=== PATIENT | female | born 1945 | race Caucasian/White ===

== ENCOUNTER → 2017-04-08 | Outpatient (CLI) | payer MEDICARE, BC | LOC: BICMAMMO 12:00 | PROVIDERS: ATTEND Internal Medicine | DX: Z12.31 Encounter for screening mammogram for malignant neoplasm of breast (principal) | CPT/HCPCS: 77063; 77067 ==

== ENCOUNTER 2018-07-20 12:12 | Outpatient (CLI) | payer MEDICARE, BC ==
--- NOTE | 2018-07-20 12:57 | MMO ---
Bilateral MAMMO Bilat Screen [facility]. CLINICAL HISTORY: Patient is 73 years old and is seen for screening. The patient has no family history of breast cancer. The patient has no personal history of cancer. The patient has a history of right Excisional Biopsy in March 2004 - benign. VIEWS: The views performed were: bilateral craniocaudal with tomosynthesis and bilateral mediolateral oblique with tomosynthesis. FILMS COMPARED: The present examination has been compared to prior imaging studies performed at [facility] on 02/13/2005, 02/16/2006, 02/24/2006, 02/24/2007, 02/28/2008, 03/01/2009, 03/19/2010, 03/20/2011, 04/04/2015, 04/07/2016 and 04/08/2017, and at [facility] on 02/10/2003 and 02/14/2004. MAMMOGRAM FINDINGS: There are scattered fibroglandular densities. There are no suspicious masses, suspicious calcifications, or new areas of architectural distortion. IMPRESSION: THERE IS NO MAMMOGRAPHIC EVIDENCE OF MALIGNANCY. A ROUTINE FOLLOW-UP MAMMOGRAM IN 1 YEAR IS RECOMMENDED. THE RESULTS OF THIS EXAM WERE SENT TO THE PATIENT. ACR BI-RADS Category 1 - Negative MAMMOGRAPHY NOTE: 1. A negative mammogram report should not delay a biopsy if a dominant of clinically suspicious mass is present. 2. Approximately 10% to 15% of breast cancers are not detected by mammography. 3. Adenosis and dense breasts may obscure an underlying neoplasm.
== END 2018-07-20 12:13 | disposition home or self-care (01) ==
LOC: BICMAMMO 12:12
PROVIDERS: ATTEND Obstetrics & Gynecology
DX: Z12.31 Encounter for screening mammogram for malignant neoplasm of breast (principal)
CPT/HCPCS: 77063; 77067

== ENCOUNTER 2019-07-25 10:52 | Outpatient (CLI) | payer MEDICARE, BC ==
--- NOTE | 2019-07-25 11:32 | MMO ---
Bilateral MAMMO Bilat Screen [facility]. CLINICAL HISTORY: Patient is 74 years old and is seen for screening. The patient has no family history of breast cancer. The patient has a history of Skin cancer. The patient has a history of right Excisional Biopsy in March 2004 - benign. VIEWS: The views performed were: bilateral craniocaudal with tomosynthesis; bilateral mediolateral oblique with tomosynthesis; and left mediolateral oblique. FILMS COMPARED: The present examination has been compared to prior imaging studies performed at [facility] on 04/04/2015, 04/07/2016, 04/08/2017 and 07/20/2018. This study has been interpreted with the assistance of computer-aided detection. MAMMOGRAM FINDINGS: There are scattered fibroglandular densities. There are no suspicious masses, suspicious calcifications, or new areas of architectural distortion. IMPRESSION: THERE IS NO MAMMOGRAPHIC EVIDENCE OF MALIGNANCY. A ROUTINE FOLLOW-UP MAMMOGRAM IN 1 YEAR IS RECOMMENDED. THE RESULTS OF THIS EXAM WERE SENT TO THE PATIENT. ACR BI-RADS Category 1 - Negative MAMMOGRAPHY NOTE: 1. A negative mammogram report should not delay a biopsy if a dominant of clinically suspicious mass is present. 2. Approximately 10% to 15% of breast cancers are not detected by mammography. 3. Adenosis and dense breasts may obscure an underlying neoplasm. Reported by: DANTE MARIN MD Electonically Signed: [id number]
== END 2019-07-25 10:53 | disposition home or self-care (01) ==
LOC: BICMAMMO 10:52
PROVIDERS: ATTEND Obstetrics & Gynecology
DX: Z12.31 Encounter for screening mammogram for malignant neoplasm of breast (principal); Z85.828 Personal history of other malignant neoplasm of skin; Z91.89 Other specified personal risk factors, not elsewhere classified
CPT/HCPCS: 77063; 77067

== ENCOUNTER 2020-02-03 15:48 | Outpatient (CLI) | payer MEDICARE, BC ==
--- NOTE | 2020-02-03 16:43 | CT ---
CT lumbar spine noncontrast HISTORY: Low back pain. Radiculopathy. FINDINGS: Vertebral body heights are maintained. No acute fracture or dislocation. Small dystrophic calcification at the left posterior costophrenic angle may represent a granuloma fro m healed granulomatous disease. Metallic clips are noted at the gallbladder fossa. T12-L1, L1-2, L2-3: Mild osteophytosis. Central canal and neural foramina are patent. L3-4: Disc space narrowing and very mild disc bulge. Osteophytosis of the facets. Central canal and l eft neural foramen are patent. Mild stenosis of the right neural foramen. L4-5: Mild disc space narrowing. There is 0.3 cm anterior translation of L4 on L5. No fractures. Mild diffuse posterior disc bulge, along with posterior ligaments thickening and facet hypertrophy result in moderate to severe stenosis of the central canal. Neural foramina remain patent. L5-S1: Disc space narrowing. Gas disc phenomenon. Mild osteophytosis of the facets. Central canal and neural foramina are patent. IMPRESSION : Degenerative changes most pronounced at the L4-5 level, where there is moderate to severe stenosis of the central canal, resulting from grade 1 spondylolisthesis and circumferential degenerative changes.
== END 2020-02-03 15:49 | disposition home or self-care (01) ==
LOC: BICCT 15:48
PROVIDERS: ATTEND Anesthesiology Pain Medicine
DX: M54.42 Lumbago with sciatica, left side (principal); M47.816 Spondylosis without myelopathy or radiculopathy, lumbar region; M43.16 Spondylolisthesis, lumbar region; M48.061 Spinal stenosis, lumbar region without neurogenic claudication
CPT/HCPCS: 72131

== ENCOUNTER 2020-02-14 15:28 | Outpatient (CLI) | payer MEDICARE, BC ==
--- NOTE | 2020-02-14 16:40 | CT ---
CT Thoracic Spine WO Con History: Neck and back pain Comparison: CT chest October 23, 2019 Findings: Mild peripheral scarring throughout the lungs greatest in the upper lobes. No pneumothorax. No pleural effusion. No significant pericardial fluid. The visualized thoracic aorta is normal in size. Sternum and manubrium are not fully in the [id number]. No thoracic spine compression fracture. No retropulsion. No significant listhesis. Bridging anterior osteophytes involving the mid and lower thoracic spine. Visualized posterior ribs are intact. Small calcified granuloma just posterior to the spleen measurin g less than 4 mm. No facet joint widening. No spinous process fracture. No transverse process fracture. [employer] is enlarged measuring up to 3.5 cm. Right T2/T3 paramidline and lateral recess disc osteophyte complex causes mild right neural foraminal narrowing. No significant spinal canal narrowing. Left lateral recess and subforaminal disc osteophyte complex at T10/T11 causes moderate neural forami nal narrowing. No other level of neural foraminal or spinal canal narrowing is appreciated. Multiple flowing anterior osteophytes at the mid and lower thoracic spine with relatively maintained disc space height loss. Impression: No high-grade neural foraminal or spinal canal narrowing. Small right T2/T3 and left T10/ T11 disc osteophyte complex.
--- NOTE | 2020-02-14 17:15 | CT ---
CT CERVICAL SPINE WITHOUT CONTRAST: 02/14/20 INDICATIONS: Neck pain. right arm tingling. FINDINGS: Cervical vertebrae maintain height and alignment. Degenerative changes are noted at the C5-6 and C6-7 levels. Loss of disc space at both of these levels with anterior osteophytes and posterior spondylos is. C2-3: Mild bulge. No central canal or foraminal stenosis. C3-4: Mild diffuse disc bulge effaces the anterior subarachnoid space. Possible small central protrus ion abutting the anterior cord. No foraminal stenosis. C4-5: Mild disc bulge and spondylosis efface the anterior subarachnoid space. Left uncinate hypertro phy produces mild left foraminal encroachment without significant stenosis. No significant central ca nal stenosis. C5-6: Prominent posterior spondylosis produces cord compression and moderate central canal stenosis. Bilateral foraminal stenosis due to facet and uncinate hypertrophy. C6-7: Disc bulge and spondylosis abuts the anterior cord. No significant foraminal stenosis. IMPRESSION: 1. Degenerative changes at C5-6 with posterior spondylosis produces cord compression and bilater al foraminal stenosis. 2. Findings at other levels as described above. POS: [facility]W
== END 2020-02-14 15:29 | disposition home or self-care (01) ==
LOC: BICCT 15:28
PROVIDERS: ATTEND Anesthesiology Pain Medicine
DX: M51.34 Other intervertebral disc degeneration, thoracic region (principal); M50.122 Cervical disc disorder at C5-C6 level with radiculopathy; M48.02 Spinal stenosis, cervical region; M47.812 Spondylosis without myelopathy or radiculopathy, cervical region
CPT/HCPCS: 72125; 72128

== ENCOUNTER 2020-07-26 09:14 | Outpatient (CLI) | payer MEDICARE, BC | END 2020-07-26 09:15 | disposition home or self-care (01) | LOC: BICMAMMO 09:14 | PROVIDERS: ATTEND Obstetrics & Gynecology | DX: Z12.31 Encounter for screening mammogram for malignant neoplasm of breast (principal); Z85.828 Personal history of other malignant neoplasm of skin; Z91.89 Other specified personal risk factors, not elsewhere classified | CPT/HCPCS: 77063; 77067 ==

== ENCOUNTER 2021-01-09 07:36 | Day surgery (SDC) | payer MEDICARE, BC ==
[2021-01-08 09:56] VITALS: BMI 36.9
[2021-01-09 08:07] VITALS: BP 129/84; TEMP 98.3
== END 2021-01-09 10:05 | disposition home or self-care (01) ==
LOC: RAD 07:36 → EDSTATUS 08:00 → RAD 10:05
PROVIDERS: ATTEND Neurological Surgery
DX: M47.22 Other spondylosis with radiculopathy, cervical region (principal); M50.122 Cervical disc disorder at C5-C6 level with radiculopathy; M48.02 Spinal stenosis, cervical region; M47.813 Spondylosis without myelopathy or radiculopathy, cervicothoracic region; M47.24 Other spondylosis with radiculopathy, thoracic region; M51.14 Intervertebral disc disorders with radiculopathy, thoracic region; M48.14 Ankylosing hyperostosis [Forestier], thoracic region; M47.26 Other spondylosis with radiculopathy, lumbar region; M43.16 Spondylolisthesis, lumbar region; M48.061 Spinal stenosis, lumbar region without neurogenic claudication; M67.88 Other specified disorders of synovium and tendon, other site; I42.9 Cardiomyopathy, unspecified; M32.9 Systemic lupus erythematosus, unspecified; K21.9 Gastro-esophageal reflux disease without esophagitis; I10 Essential (primary) hypertension; E78.5 Hyperlipidemia, unspecified; Z86.16 Personal history of COVID-19; Z79.82 Long term (current) use of aspirin; Z79.899 Other long term (current) drug therapy; Z95.810 Presence of automatic (implantable) cardiac defibrillator
CPT/HCPCS: 72126; 72129; 72132; 77002

== ENCOUNTER 2021-02-01 10:41 | Outpatient (CLI) | payer MEDICARE, BC | END 2021-02-01 10:42 | disposition home or self-care (01) | LOC: BICRAD 10:41 | PROVIDERS: ATTEND Anesthesiology Pain Medicine | DX: M43.16 Spondylolisthesis, lumbar region (principal); M51.36 Other intervertebral disc degeneration, lumbar region | CPT/HCPCS: 72110 ==

== ENCOUNTER 2021-07-29 10:29 | Outpatient (CLI) | payer MEDICARE, BC | END 2021-07-29 10:30 | disposition home or self-care (01) | LOC: BICMAMMO 10:29 | PROVIDERS: ATTEND Internal Medicine | DX: Z12.31 Encounter for screening mammogram for malignant neoplasm of breast (principal); Z85.828 Personal history of other malignant neoplasm of skin; Z91.89 Other specified personal risk factors, not elsewhere classified | CPT/HCPCS: 77063; 77067 ==

== ENCOUNTER 2021-07-31 15:14 | Outpatient (CLI) | payer MEDICARE, BC | END 2021-07-31 15:15 | disposition home or self-care (01) | LOC: BICRAD 15:14 | PROVIDERS: ATTEND Podiatrist | DX: M79.671 Pain in right foot (principal); G60.9 Hereditary and idiopathic neuropathy, unspecified; M25.871 Other specified joint disorders, right ankle and foot ==

== ENCOUNTER 2022-09-09 12:48 | Outpatient (CLI) | payer MEDICARE, BC | END 2022-09-09 12:49 | disposition home or self-care (01) | LOC: BICMAMMO 12:48 | PROVIDERS: ATTEND Obstetrics & Gynecology | DX: Z12.31 Encounter for screening mammogram for malignant neoplasm of breast (principal); Z13.820 Encounter for screening for osteoporosis; M81.0 Age-related osteoporosis without current pathological fracture; M85.80 Other specified disorders of bone density and structure, unspecified site; Z91.89 Other specified personal risk factors, not elsewhere classified; Z85.828 Personal history of other malignant neoplasm of skin | CPT/HCPCS: 77063; 77067; 77080 ==

== ENCOUNTER 2023-09-11 10:27 | Outpatient (CLI) | payer MEDICARE, BC | END 2023-09-11 10:28 | disposition home or self-care (01) | LOC: BICMAMMO 10:27 | PROVIDERS: ATTEND Obstetrics & Gynecology | DX: Z12.31 Encounter for screening mammogram for malignant neoplasm of breast (principal); Z85.828 Personal history of other malignant neoplasm of skin; Z91.89 Other specified personal risk factors, not elsewhere classified | CPT/HCPCS: 77063; 77067 ==

== ENCOUNTER 2024-01-25 13:51 | Outpatient (CLI) | payer MEDICARE, BC | END 2024-01-25 13:52 | disposition home or self-care (01) | LOC: BICCT 13:51 | PROVIDERS: ATTEND Physician Assistant Medical | DX: R10.84 Generalized abdominal pain (principal); R19.4 Change in bowel habit; R14.0 Abdominal distension (gaseous); K59.00 Constipation, unspecified | CPT/HCPCS: 36415; 74177; 82565 ==

== ENCOUNTER 2024-03-17 06:52 | Day surgery (SDC) | payer MEDICARE, BC ==
[2024-03-16 13:16] VITALS: BMI 38.6
[2024-03-17] MEDS ORDERED: PROPOFOL 40 ML ONE (08:00)
[2024-03-17] MEDS ORDERED: Lidocaine 2% PF 5 ML VIAL ONE (08:00)
[2024-03-17] MEDS ORDERED: PHENYLEPHRINE-NS 100 MCG/ML 10 ML SYRINGE ONE (09:09)
[2024-03-17] MEDS ORDERED: PROPOFOL 20 ML ONE (09:09)
== END 2024-03-17 10:25 | disposition home or self-care (01) ==
LOC: SDC 06:52
PROVIDERS: ATTEND Internal Medicine Gastroenterology
PROC: 0DB68ZX Excision of Stomach, Via Natural or Artificial Opening Endoscopic, Diagnostic (ICD-10-PCS; principal; 2024-03-17)
PROC: 0D758ZZ Dilation of Esophagus, Via Natural or Artificial Opening Endoscopic (ICD-10-PCS; 2024-03-17)
PROC: 0DBN8ZZ Excision of Sigmoid Colon, Via Natural or Artificial Opening Endoscopic (ICD-10-PCS; 2024-03-17)
DX: K63.5 Polyp of colon (principal); K29.50 Unspecified chronic gastritis without bleeding; K31.89 Other diseases of stomach and duodenum; K64.8 Other hemorrhoids; K59.9 Functional intestinal disorder, unspecified; K21.9 Gastro-esophageal reflux disease without esophagitis; I10 Essential (primary) hypertension; Z90.710 Acquired absence of both cervix and uterus; Z90.49 Acquired absence of other specified parts of digestive tract; Z95.810 Presence of automatic (implantable) cardiac defibrillator; Z98.49 Cataract extraction status, unspecified eye; Z79.82 Long term (current) use of aspirin; Z79.899 Other long term (current) drug therapy
CPT/HCPCS: 43239; 43450; 45385; J2704; 88305

== ENCOUNTER 2024-03-24 08:50 | Outpatient (CLI) | payer MEDICARE, BC | END 2024-03-24 08:51 | disposition home or self-care (01) | LOC: CT 08:50 | PROVIDERS: ATTEND Family Medicine | DX: M47.814 Spondylosis without myelopathy or radiculopathy, thoracic region (principal); M48.04 Spinal stenosis, thoracic region; M48.14 Ankylosing hyperostosis [Forestier], thoracic region | CPT/HCPCS: 72128 ==